=== PATIENT | male | born 2000 | race Caucasian/White ===

== ENCOUNTER 2025-03-06 22:49 | Emergency (ER) | payer SELFPAY ==
[2025-03-06 23:03] VITALS: BP 119/71; PULSE 57; RESP 12; TEMP 36.4; O2SAT 97; BMI 24.3
--- NOTE | 2025-03-07 00:19 | ED_ITS ---
HPI - Ear Problem General Chief complaint: Ear Problems Stated complaint: Ear Infection Time Seen by Provider: 03/06/25 23:23 Source: patient Mode of arrival: ambulatory Limitations: no limitations History of Present Illness ED Provider: MALORIE BARAJAS PA-C HPI Narrative: 24 year old male presents to the ED today with right ear pain x1 week. Admits to dropping his ear bud on the dirty floor at work and then reinserting it into his right ear. Since this time, admits to ear pain/irritation and drainage. Denies any hearing changes/loss. Admits to instilling hydrogen peroxide + alcohol into the ear without relief. Denies recent swimming or plane rides. Denies inserting anything else into the ear. Denies fever, chills, jaw or neck pain. Denies hx of DM. Related Data Previous Rx's ?Medication ?Instructions ?Recorded ciprofloxacin 0.3 %-dexamethasone 4 drp otic (ear) rig ht BID 7 days 03/07/25 0.1 % ear drops,suspension #7.5 mL Allergies Allergy/AdvReac Type Severity Reaction Status Date / Time No Known Allergies Allergy Verified 03/06/25 23:05 Review of Systems Review of Systems: Yes all other systems are reviewed and are negative PMFSH Past Medical History Attestation statement: The following information was validated with the patient. Source: old records reviewed and nursing notes reviewed Social History Social History Advance Directives: No Advance Directives Information Provided: Yes Do you have a plan to hurt others: No Plan Physical Exam Vital Signs: Vital Signs: Last Vital Signs Temp 97.6 F 03/07/25 00:30 Pulse 57 03/07/25 00:30 Resp 12 03/07/25 00:30 BP 119/71 03/07/25 00:30 Pulse Ox 97 03/07/25 00:30 O2 Del Method Room Air 03/07/25 00:30 BMI result Body Mass Index 24.3 vital signs stable General: Well appearing, in no acute distress. Skin: Warm, dry, intact. No rashes or lesions. Head: Normocephalic, atraumatic. EENT: Hearing is intact b/l. Conjunctiva clear. PERRLA. EOM intact. Moist mucous membranes.? + No pain on manipulation of left pinna or tragus. No protrusion of the auricle. No mastoid tenderness, fluctuance, warmth. Left EAC without erythema, edema or discharge. TM intact without erythema, effusion, or bulging. + No pain on manipulation of right pinna or tragus. No protrusion of the auricle. No mastoid tenderness, fluctuance, warmth. Right EAC with edema and erythema. TM intact without erythema, effusion, or bulging. Neck: Supple without LAD Cardiac: Chest wall symmetric. RRR Lungs: Normal respiratory effort without accessory muscle use Ext: Upper and lower extremities atraumatic, without tenderness, deformity, swelling or erythema Neuro: AOx3. Normal speech. Ambulating with steady gait Medical Decision Making Medical Decision Making MDM Narrative: 24 year old male presents to the ED today with right ear pain x1 week. Vital signs stable. Afebrile. He is well-appearing in no acute distress. On exam, of right ear, there is no pain on manipulation of right pinna or tragus. No protrusion of the auricle. No mastoid tenderness, fluctuance, warmth. Right EAC with edema and erythema. TM intact without erythema, effusion, or bulging. Differential diagnosis includes otitis externa, otitis media. Unlikely mastoiditis, otitis externa. His exam is consistent with otitis externa of the right ear. Will send patient home on Ciprodex. Patient has remained stable throughout ED visit today. Discussed worrisome signs and symptoms and when to return to the ED. All questions answered at this time. Patient is agreeable with disposition and stable for discharge. Differential Diagnosis Differential Diagnoses: The differential diagnosis associated with the presentation includes as above. Admission/Observation Not indicated Prescription Management I considered prescription management with: Other (Ciprodex) Social Determinants Patient?s care significantly limited by Social Determinants of Health including: Other Social Determinant of Health Critical Care Time Critical Care Time Critical Care Time: No Discharge Plan Discharge Clinical Impression: Otitis externa Patient Disposition: Home, Self-Care Instructions: [facility] (ED) Additional Instructions: You presented to the ED today for evaluation of ear pain. You have an outer ear infection, called otitis externa. See home care instructions. Treatment for this is with antibiotic ear drops. Ciprodex ear drops have been sen to your pharmacy for treatment. This is a combination antibiotic/ steroid ear drop to help with infection/ swelling. Instill 4 drops into the effected ear twice daily for 7 days. Take Tylenol/ Motrin for fevers. Please follow up with PCP. Return with new or worsening symptoms. In the case of an emergency call 911. Prescriptions: New ciprofloxacin-dexamethasone 0.3-0.1 % drops,suspension 4 drp otic (ear) right BID 7 Days Qty: 7.5 0RF Referrals: Physician,None [Primary Care Provider, Medical] Stand Alone Forms: Work/School Release Interventions: ED Discharge Assessment Last Done: 03/07/25 00:30 Discharge Date/Time: 03/07/25 00:31 Print Language: Chinese
[2025-03-07 00:30] VITALS: BP 119/71; PULSE 57; RESP 12; TEMP 36.4; O2SAT 97
== END 2025-03-07 00:31 | disposition home or self-care (01) ==
PROVIDERS: Emergency Provider Emergency Medicine
DX: H60.91 Unspecified otitis externa, right ear (principal); H92.01 Otalgia, right ear
CPT/HCPCS: 99282; 99283